=== PATIENT | male | born 1950 | race Caucasian/White ===

== ENCOUNTER 2021-01-19 11:46 | Inpatient (IN) ==
--- NOTE | 2021-01-04 08:48 | History & Physical Report ---
Date of Service January 04, 2021 date of surgery: 01/18/21 Procedure: left shoulder resurfacing hemiarthroplasty vs total shoulder replacement Assessment & Plan (1) Arthritis of left shoulder region: Mr Huerta presents with continued pain in his left shoulder, he had a rotator cuff repair about 14 months ago. he recently had a cortisone injection about 6-8 weeks ago without relief, prior to that he underwent visco injection without relief as well. after further discussion, he would like to proceed with left shoulder resurfacing hemiarthroplasty at [facility]. The risks and benefits have been discussed including, but not limited to, risk of infection, nerve injury, stiffness, loss of motion, failure to improve, etc. Reasonable outcomes and options of treatment were discussed. An explanation of appropriate alternatives to the procedure that may be advantageous were discussed and their risks and benefits, as well as the risks and benefits of not proceeding with treatment. I offered to answer any additional inquiries concerning the treatment involved. All the patient's questions were answered. The patient is agreeable, understanding of the treatment plan and alternatives, and wishes to proceed with the treatment plan. History of Present Illness Chief Complaint: left shoulder pain Primary Care Provider: Madison Knight Mr Huerta is a 70 year old male who complains of left shoulder pain, presents for pre-op evaluation prior to a left shoulder resurfacing vs total shoulder replacement at [facility]. He complains of pain, decreased range of motion and weakness in his left shoulder. he states that the symptoms have been chronic and non-traumatic. Currently the patient states that the symptoms are moderate- severe. The pain is described as aching, sharp and throbbing. Prior NSAIDs include Motrin and Aleve. Jim had prior left shoulder scope by Dr Jaime in October 2019 and subsequent left shoulder visco sample injection 07/26/20 fo llowed by left shoulder cortisone injection on 11/08/20 without any relief. Allergies Allergy/AdvReac Type Severity Reaction Status Date / Time No Known Allergies Allergy Verified 01/03/21 09:08 Home Medications Medication Instructions Recorded Confirmed Type aspirin 81 mg PO QAM 10/17/19 01/03/21 History fluticasone propionate [Flonase 1 spray INTRANASAL DAILY 10/17/19 01/03/21 History Allergy Relief] lorazepam 1 mg PO HS 10/17/19 01/03/21 History montelukast [Singulair] 10 mg PO PM 10/17/19 01/03/21 History pravastatin 40 mg PO HS 10/17/19 01/03/21 History ramipril [Altace] 10 mg PO BID 10/17/19 01/03/21 History terazosin 5 mg PO HS 10/17/19 01/03/21 History cetirizine [Zyrtec] 10 mg PO HS 01/03/21 01/03/21 History diclofenac sodium [Voltaren] 2 g TOPICAL BID 01/03/21 01/03/21 History duloxetine 60 mg PO QPM 01/03/21 01/03/21 History metoprolol succinate 25 mg PO BID 01/03/21 01/03/21 History metoprolol succinate 50 mg PO BID 01/03/21 01/03/21 History Past Med/Surg History Medical History Anxiety Asthma RARELY HAS PROBLEMS (NO INHALER) Bulging lumbar disc CAD (coronary artery disease) 2008 - stent x 1 2005 - stent x 1 Chronic back pain Hearing deficit History of kidney stones History of torsades de pointes during stress test (2008) s/p stent x 1 Hyperlipidemia Hypertension Obesity Osteoarthritis 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 (Medtronic), last checked 07/2019 and generator change (2/2 low battery) 08/2019 Prostate cancer s/p prostatectomy Sleep apnea NO DEVICE USED TMJ arthralgia Surgical History History of arthroscopic knee surgery B/L History of arthroscopy LEFT SHOULDER History of cardiac cath 2008 - stent x 1 2005 - stent x 1 History of cataract surgery RT/LEFT History of cholecystectomy History of colonoscopy History of prostate biopsy History of radical prostatectomy History of repair of rotator cuff B/L History of tonsillectomy History of tooth extraction Status post trigger finger release Family History Aunt Family history of diabetes mellitus Grandmother (Paternal) Family history of diabetes mellitus Other No family history of adverse response to anesthesia Social History Smoking Status: Never smoker Second Hand Exposure: Yes (IN THE PAST); Hx Alcohol Use: No Preferred Language: Kazakh Communication Ability: Effective 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: No Beliefs That Will Affect Care: None Current Living Situation: Spouse Feels Safe at Home: Yes Assistive Devices: Glasses Review of Systems Review of Systems: All systems reviewed & are unremarkable except as noted in HPI & below Constitutional: no fever, no chills and no sweats Respiratory: no cough and no dyspnea Cardiovascular: no chest pain, no dyspnea and no orthopnea Gastrointestinal: no abdominal pain, no nausea and no vomiting Musculoskeletal: as per Subjective / HPI Physical Exam Physical Exam: HT: 6ft 2in WT: 122.5kg Constitutional: WD/WN, vitals as above no acute distress Respiratory: normal respiratory effort, lungs clear to auscultation no respiratory distress, no labored breathing and does not use accessory muscles Cardiovascular: RRR, no murmur, no edema Gastrointestinal (Abdomen): normal bowel sounds, soft, nontender, no hepatosplenomegaly Musculoskeletal: Left Shoulder Physical Exam there is no ecchymosis or erythema noted, positive crepitation with active motion, Tenderness anterior aspect shoulder, subacromial space and the AC joint. Belly press - Positive. Nieves Positive. Cross Body Positive. Neer's - positive. Strength tests - External rotation 4/5, Supraspinatus 4/5 no atrophy Left shoulder ROM Active ROM - Flexion: 120 degrees, Ext Rot 90 Flex: 30 degrees, Abduction: 45 degrees, Factors: pain, Description: Pain with ROM. Passive ROM - Flexion 170 degrees, ER at 90 de degrees, pain with end range passive ROM. Neurovascular- Radial pulse palpable, radial/median/ulnar nerves intact. Elbow- full painless range of motion, no tenderness. Results & Data Results & Data ([facility]) Diagnostic Findings Left shoulder x-ray 11/08/20 showing glenohumeral degenerative changes with joint space narrowing, osteophyte formation and cystic changes within the humeral head. no acute bony pathology.
--- NOTE | 2021-01-04 13:09 | PAT Medication Instructions ---
Medication Instructions Date of Service January 04, 2021 Home Medications aspirin 81 mg PO QAM fluticasone propionate [Flonase Allergy Relief] 1 spray INTRANASAL DAILY lorazepam 1 mg PO HS montelukast [Singulair] 10 mg PO PM pravastatin 40 mg PO HS ramipril [Altace] 10 mg PO BID terazosin 5 mg PO HS cetirizine [Zyrtec] 10 mg PO HS diclofenac sodium [Voltaren] 2 g TOPICAL BID duloxetine 60 mg PO QPM metoprolol succinate 25 mg PO BID metoprolol succinate 50 mg PO BID STOP taking 24 hours before surgery diclofenac sodium [Voltaren] 2 g TOPICAL BID DO NOT take the morning of surgery ramipril [Altace] 10 mg PO BID Take morning of surgery With a small sip of water, OTHERWISE NOTHING TO EAT OR DRINK AFTER MIDNIGHT: metoprolol succinate 25 mg PO BID metoprolol succinate 50 mg PO BID fluticasone propionate [Flonase Allergy Relief] 1 spray INTRANASAL DAILY aspirin 81 mg PO QAM Take evening before surgery lorazepam 1 mg PO HS montelukast [Singulair] 10 mg PO PM pravastatin 40 mg PO HS ramipril [Altace] 10 mg PO BID terazosin 5 mg PO HS cetirizine [Zyrtec] 10 mg PO HS duloxetine 60 mg PO QPM metoprolol succinate 25 mg PO BID metoprolol succinate 50 mg PO BID Other Notes If you have any questions please call us at [phone] or [phone] or [phone] or [phone]
--- NOTE | 2021-01-06 10:49 | Anesthesiology Consultation ---
Date of Service January 06, 2021 Assessment & Plan (1) Encounter for pre-operative examination: Chart Review Chart Review: Pending: Refer to Additional Notes / Consult section (attempting to get copies of stress test, pacemaker check, and preop Covid testing ) and Patient seen in Pre Admission Testing Awaiting stress test 11/2020, pacer check 12/2020 -Discussed pacemaker with Dr. Hays- due to patient having left shoulder surgery- it would be difficult to secure a magnet- will request pacemaker rep be present DOS. Per PAT appt on 01/06/21, patient denies any recent travel. No known Covid positive contacts or Covid related symptoms. No known Covid infection in the past 90 days. Preop Covid testing scheduled 01/12/21= will await results. Educated on importance of self quarantining, social distancing and wearing mask in public both for the patient and household contacts. Seen by cardiology 01/05/2021 = seen for preoperative cardiac clearance. History of CAD status post PCI to RCA in 2003 and 2008. Most recent stress test on 11/15/2020 showed no ischemia. Device check from 12/14/2020 was normal. Patient has a Medtronic dual-chamber permanent pacemaker implanted on 08/2019- " would recommend placing magnet over device if using electrocautery; this will cause pacing at 100 bpm. No reprogramming is required after the magnet is removed." Continue current cardiac medications. Vital signs stable. EKG shows sinus rhythm, right bundle branch block, 60 bpm. " This would be considered as an intermediate risk surgery. He has good functional status, greater than >4 METS and no clinical risk factors. He denies any anginal complaints and appears euvolemic on physical exam today. No indication for any additional testing prior to the surgery. He is optimized from a cardiac standpoint to proceed with a left shoulder arthroplasty." Left shoulder arthroscopy 10/21/2019 = done under [facility] with LMA #5. Atraumatic x1 attempt. No anesthesia issues noted per anesthesia record. Teaching & Discussion Pre-Anesthesia Teaching/Discussion Notes: Instructed NPO after midnight before surgery,except medications with 15 cc of water. Medication instructions provided according to the PAT guidelines. History Surgery Operation Date: 01/18/21 11:55 Proposed Procedures p Left Shoulder Resurfacing versus - Tank Jaime DO s Left Shoulder Hemiarthroplasty versus - Tank Jaime DO s Left Total Shoulder Arthroplasty - Tank Jaime DO Height/Weight Height: 6 ft 2 in Weight: 126.4 kg Allergies Allergy/AdvReac Type Severity Reaction Status Date / Time amoxicillin [From Augmentin] AdvReac Intermediate Diarrhea Verified 01/06/21 10:53 clavulanic acid AdvReac Intermediate Diarrhea Verified 01/06/21 10:53 [From Augmentin] [id number] Reductase AdvReac Intermediate Muscle Verified 01/06/21 10:53 Inhibitor aches and soreness Medications Home Medications Medication Instructions Recorded Confirmed Last Taken aspirin 81 mg PO QAM 10/17/19 01/03/21 10/21/19 07:00 fluticasone propionate [Flonase 1 spray INTRANASAL DAILY 10/17/19 01/03/21 10/20/19 22:00 Allergy Relief] lorazepam 1 mg PO HS 10/17/19 01/03/21 10/20/19 22:00 montelukast [Singulair] 10 mg PO PM 10/17/19 01/03/21 10/20/19 22:00 pravastatin 40 mg PO HS 10/17/19 01/03/21 10/20/19 22:00 ramipril [Altace] 10 mg PO BID 10/17/19 01/03/21 10/20/19 22:00 terazosin 5 mg PO HS 10/17/19 01/03/21 10/20/19 22:00 cetirizine [Zyrtec] 10 mg PO HS 01/03/21 01/03/21 Unknown diclofenac sodium [Voltaren] 2 g TOPICAL BID 01/03/21 01/03/21 Unknown duloxetine 60 mg PO QPM 01/03/21 01/03/21 Unknown metoprolol succinate 25 mg PO BID 01/03/21 01/03/21 Unknown metoprolol succinate 50 mg PO BID 01/03/21 01/03/21 Unknown Past Medical History Medical History Anxiety Asthma RARELY HAS PROBLEMS (NO INHALER) Bulging lumbar disc CAD (coronary artery disease) 2009 - stent x 1 to prox RCA 2006 - stent x 1 Hearing deficit Does not wear hearing aids History of kidney stones No current issues History of torsades de pointes during stress test (2008) s/p stent x 1 Hyperlipidemia Hypertension Lichen planus In mouth - follows with oral surgeon Obesity Osteoarthritis 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 (Medtronic), generator change (2/2 low battery) 08/2019 Prostate cancer s/p prostatectomy- no chemo or XRT Sleep apnea NO DEVICE USED TMJ arthralgia Occ clicking with jaw opening ; difficultly opening mouth Exercise / Class Metabolic Activity II 4-5 Yardwork/Stairs/Walk up hill (ONE FLIGHT OF STAIRS - NO CHEST PAIN OR SOB ) Past Family History Family History Aunt Family history of diabetes mellitus Grandmother (Paternal) Family history of diabetes mellitus Other No family history of adverse response to anesthesia Past Surgical History Surgical History History of arthroscopic knee surgery B/L History of arthroscopy LEFT SHOULDER History of cardiac cath 2008 - stent x 1 2005 - stent x 1 History of cataract surgery RT/LEFT History of cholecystectomy History of colonoscopy History of prostate biopsy History of radical prostatectomy History of repair of rotator cuff B/L History of tonsillectomy History of tooth extraction Status post trigger finger release Past Anesthesia History No Hx of Anesthesia Complications and No Family Hx of Anesthesia Complications History of PONV No Hx of PONV and No Hx of Motion Sickness Social History Smoking Status: Never smoker Hx Alcohol Use: No Hx Substance Use: No substance use type: does not use Review of Systems Patient denies chest pain, shortness of breath, dyspnea on exertion, reflux, cough, wheezing, palpitations. No hx of seizures, stroke. No hx of blood clots or blood transfusions Physical Exam Vital Signs VITALS BP 119/73 P 59 TEMP 98.1 SP02 96% RESP 16 Constitutional no acute distress ENMT Mouth: + small oral opening; no TMJ clicking Thyromental Distance: > or= 3.5 Finger Breadths (4.0) Mallampati Class: II Permanent bridge top front Crowns molar MIssing molar Neck + limited neck extension (moderate ) and + facial hair (encouraged patient to trim de los santos ) Respiratory normal respiratory effort; no respiratory distress Auscultation: lungs clear to auscultation bilaterally; no wheezes Cardiovascular Rate/Rhythm: regular rate and regular rhythm Heart Sounds: no murmur Vessels: no carotid bruit Musculoskeletal Spine: no pain with cervical ROM Extremities: extremities normal to inspection Psychiatric Orientation: alert Testing Laboratory Results PT 10.2 Seconds (9.0-12.0) 01/06/21 11:11 INR 1.0 (0.9-1.1) 01/06/21 11:11 APTT 26.3 Seconds (21.0-31.0) 01/06/21 11:11 Hemoglobin A1c 5.6 % (4.5-5.6) 01/06/21 11:11 Urine Color Yellow 01/06/21 11:11 Urine Appearance Clear (Clear) 01/06/21 11:11 Urine pH 6.0 (4.5-7.5) 01/06/21 11:11 Ur Specific [place] 1.017 (1.000-1.030) 01/06/21 11:11 Urine Protein Negative (Negative) 01/06/21 11:11 Urine Glucose (UA) Negative (Negative) 01/06/21 11:11 Urine Ketones Negative (Negative) 01/06/21 11:11 Urine Nitrite Negative (Negative) 01/06/21 11:11 Ur Leukocyte Esterase Negative (Negative) 01/06/21 11:11 Blood Type A Positive 01/06/21 11:11 Antibody Screen NEGATIVE 01/06/21 11:11 12/14/20= WBC: 6.25 H/H: 14.2/41.9 PLATELETS: 218 SODIUM: 143 POTASSIUM: 4.1 CHLORIDE: 109 CO2: 26.5 BUN: 15.9 CREATININE: 1.04 GLUCOSE: 118 Electrocardiogram Date: 01/05/21 Sinus rhythm at 60 bpm. Right bundle branch block. Chest X-Ray Date: 01/04/21 Findings: + NAD Cardiomegaly and cardiac pacemaker with no radiographic evidence of congestive failure. There is bibasilar scarring/atelectasis. Chronic interstitial thickening is similar to previous. No airspace consolidation or pleural effusion is identified. There is no pneumothorax. Echocardiogram Date: 07/02/18 EF 60%. No RWMA. RVSP 35mmhg. No significant valvular disease.
--- NOTE | 2021-01-06 11:39 | XRay Report ---
TWO VIEW CHEST CLINICAL HISTORY: Preoperative examination. FINDINGS: PA and lateral chest radiographs are compared to study dated 10/20/2019. A 2-lead cardiac p acemaker is unchanged in position and partially obscures the left upper chest. The heart is enlarged noting atherosclerotic calcification of the thoracic aorta. The pulmonary vasculature is noncongested . There is bibasilar scarring/atelectasis. Chronic interstitial thickening is similar to previous. No airspace consolidation or pleural effusion is identified. There is no pneumothorax. The bony thorax appears intact. Cholecystectomy clips are noted in the upper abdomen. IMPRESSION: 1. Cardiomegaly and cardiac pacemaker with no radiographic evidence of congestive failure. 2. No airspace consolidation or pleural effusion is identified. ACT 112: Negative or not required by law. Electronically signed by: Jayden Weinberg M.D. 01/06/2021 11:37 AM
[2021-01-06 12:53] LABS: Appearance Urine Clear (Clear); Bilirubin Urine Negative (Negative); Blood Urine Negative (Negative); Color Urine Yellow; Glucose Urine UA Negative (Negative); Ketones Urine Negative (Negative); Leukocyte Esterase Urine Negative (Negative); Nitrite Urine Negative (Negative); Protein Urine Negative (Negative); Specific Gravity Urine 1.017 (1.000-1.030); Urobilinogen Urine Negative (Negative)
[2021-01-06 13:08] LABS: Partial Thromboplastin Time 26.3 Seconds (21.0-31.0); Prothrombin Time 10.2 Seconds (9.0-12.0)
[2021-01-06 13:43] LABS: Estimated Average Glucose 114 mg/dl; Hemoglobin A1C 5.6 % (4.5-5.6)
[~2021-01-19 11:46] MED LIST: ACETAMINOPHEN 500 MG TAB PO SCH; BUPIVACAINE 0.5 % 5 MG/1 ML PF 10ML VIAL ONE; CeleBREX 200 MG CAP PO SCH; FAMOTIDINE 20 MG TAB PO SCH; GABAPENTIN 300 MG CAP PO SCH; LR 15ML/HR IV SCH; METOCLOPRAMIDE HCL 10 MG TABLET PO SCH; oxyCODONE HCL 10 MG TABCR (OxyCONTIN) PO SCH
[2021-01-19] MEDS ORDERED: fentaNYL citrate 100 MCG/2 ML VIAL ONE (12:31)
[2021-01-19] MEDS ORDERED: LIDOCAINE HCL 2% 2 ML VIAL/AMP(20MG/ML) INFIL ONE (12:31)
[2021-01-19] MEDS ORDERED: MIDAZOLAM HCL 1 MG/ML 2ML VIAL ONE (12:31)
[2021-01-19] MEDS ORDERED: PROPOFOL IV EMULSION 10 MG/ML 20 ML VIAL IV ONE (12:31)
--- NOTE | 2021-01-19 13:16 | History & Physical Bridge Note ---
Date of Service January 19, 2021 History & Physical Bridge Note I have examined the patient, reviewed the History & Physical and in the interval since the performance of the History & Physical I have noted the following changes of clinical significance: no changes noted
[2021-01-19] MEDS ORDERED: BACITRACIN INJ 50,000 UNIT VIAL ONE (13:51)
[2021-01-19] MEDS ORDERED: ePHEDrine sulfate 50 MG/ML AMP ONE (15:58)
[2021-01-19] MEDS ORDERED: PROMETHAZINE HCL INJ 25 MG/ML 1 ML VIAL ONE (15:58)
[2021-01-19] MEDS ORDERED: VASOPRESSIN 20 UNIT/ML VIAL ONE (15:58)
--- NOTE | 2021-01-19 16:08 | Operative Report ---
Post Operative Report Pre & Post Diagnosis Operation Date: 01/19/21 14:15 Pre-Op Diagnosis: Osteoarthritis Shoulder Left Post-Op Diagnosis: Osteoarthritis Shoulder Left I identified the patient and participated in the time-out.: Yes Procedure Operation Date: 01/19/21 14:15 Actual Procedures p Left Shoulder Resurfacing(Left) utilizing a 46 x 17 tournier resurfacing hemiarthroplasty- Tank Jaime DO Surgeon Tank Jaime DO Food Processor Aly BAEZ Estimated Blood Loss 10 Findings Consistent with Post-Op Diagnosis Patient presents with glenohumeral DJD with osteophytes along the humeral head no rotator cuff tear nonresponsive to previous Visco supplements as well as a corticosteroid injections presents for left shoulder hemiarthroplasty the glenoid was noted to be in excellent condition otherwise no labral tear was noted Specimens Bone and cartilage Drains Medium bore Hemovac Anesthesia Type General Regional Complications none Disposition Accompanied Patient To Recovery: No Disposition: Recovery Room Indications Patient presents with ongoing complaints of glenohumeral DJD left shoulder nonresponse to conservative management including corticosteroid injections viscosupplementation the patient is also had previous arthroscopy the above intraoperative findings were noted Description of Procedure After initiation of general anesthesia left shoulder region was socially prepped draped usual fashion for surgery this type a incision over the region of the deltopectoral interval was made with special attention paid to protect the pacemaker which was medial to the incision was also gently protected out of harm's way subsequently the deltopectoral interval was developed the cephalic vein was retracted lateralward with the deltoid the anterior aspect of the capsule was then palpated via finger dissection down to the region of the anterior capsule joint of the fascia was gently retracted off the anterior subscapularis tendon scalp subscapularis tendon was then reflected off the anterior humeral head with special attention paid to protect the biceps tendon the biceps tendon was retracted out of harm's way the shoulder was externally rotated the humeral head was then delivered from the wound the special test was paid back neurovascular structures Nerve at all times socially after thorough irrigation debridement lavage the glenoid was inspected there was noted to be excellent condition plus a resurfacing of the humeral head was performed removal of osteophytes around the margin was performed the humeral head was sized to a size 46 x 17 gave anatomic catholic of anatomy subsequently this was reversed reamed and a trial component was placed to control range of motion excellent stability was noted the wound was irrigated with copious muscle sterile saline solution subsequently three #5 FiberWire's were passed through the footprint of the subscapularis tendon for reattachment and they were brought out through the humeral head the final component was brought onto the field and was gently press-fit in the position tamped into position the sutures for the #5 FiberWire were then passed through the subscapularis tendon at the repair back in anatomic fashion the rotator was repaired the wound was irrigated with copious amounts of sterile sa line solution hemostasis was obtained to maintain the medium bore Hemovacs placed in the deep wound the deltopectoral was closed with #0 Vicryl subcu was closed with 2-0 Vicryl skin was closed with skin clips sterile compressive dressings placed will shoulder immobilizer Aly BAEZ was necessary prepping draping retraction wound closure of deep fascia subcu and skin was necessary for the case I attest to the content of the Intraoperative Record and any orders documented therein. Any exceptions are noted below.
--- NOTE | 2021-01-19 17:05 | Anesthesiology Progress Note ---
Date of Service January 19, 2021 Anesthesia Post Procedure Vital Signs Vital Signs: Temp Pulse Pulse Resp BP Pulse Ox 01/19/21 17:00 36.3 C L 60 16 116/77 96 01/19/21 16:50 60 18 126/63 97 01/19/21 16:40 70 14 116/78 97 01/19/21 16:30 70 12 126/77 96 01/19/21 16:20 36.4 C L 70 16 120/91 94 01/19/21 12:12 36.5 C 60 20 128/76 97 Transfer of Care Handoff Completed per policy Notes Mental Status: alert / awake / arousable and participated in evaluation Patient Amnestic to Procedure: Yes Nausea / Vomiting: adequately controlled Pain: adequately controlled Airway Patency, RR, SpO2: stable & adequate BP & HR: stable & adequate Hydration State: stable & adequate Anesthetic Complications: no major complications apparent and Pt Satisfied with anesthetic care Notes: Block is working well. Pacemaker returned to preoperative settings by medtronic.
--- NOTE | 2021-01-19 17:24 | XRay Report ---
LEFT SHOULDER 2 VIEWS CLINICAL HISTORY: Postoperative examination. FINDINGS: 2 portable views of the left shoulder are obtained. A left shoulder arthroplasty is in near -anatomic alignment. Postoperative change is seen at the acromioclavicular joint. No acute fracture i s identified. Subcutaneous gas, soft tissue swelling, and skin clips overlying the left shoulder are expected postoperative changes. A cardiac pacemaker is partially imaged. The left lung parenchyma is clear as imaged noting basilar atelectasis. IMPRESSION: Expected postoperative findings status post left shoulder arthroplasty. No acute fracture is seen. Electronically signed by: Jayden Weinberg M.D. 01/19/2021 5:22 PM
[2021-01-19] MEDS ORDERED: MAGNESIUM HYDROXIDE SUSP 30 ML UDC PO PRN (17:36)
[2021-01-19] MEDS ORDERED: HYDROmorphone INJ 0.5 MG/0.5 ML SYR IV PRN (17:36)
[2021-01-19] MEDS ORDERED: oxyCODONE HCL IR 5 MG TAB (IMMEDIATE RELEASE) PO PRN (17:36)
[2021-01-19] MEDS: SODIUM CHLORIDE 0.9% 1000ML 1,000 ML IV SCH (17:36)
[2021-01-19] MEDS ORDERED: NALOXONE HCL 0.4 MG/1 ML VIAL/CARP IV PRN (17:36)
[2021-01-19] MEDS ORDERED: bisacodyL 10 MG SUPP PR PRN (17:36)
[2021-01-19] MEDS ORDERED: ONDANSETRON INJ 2 MG/ML 2 ML VIAL IV PRN (17:36)
[2021-01-19] MEDS ORDERED: SENNA 8.6 MG TAB PO SCH (21:00)
[2021-01-19] MEDS ORDERED: TERAZOSIN HCL 5 MG CAP PO SCH (21:00)
[2021-01-19] MEDS ORDERED: DULoxetine HCL 60 MG CAP PO SCH (21:00)
[2021-01-19] MEDS ORDERED: CETIRIZINE HCL 10 MG TABLET PO SCH (21:00)
[2021-01-19] MEDS ORDERED: MONTELUKAST SODIUM 10 MG TABLET PO SCH (21:00)
[2021-01-19] MEDS ORDERED: PRAVASTATIN SOD 40 MG TAB PO SCH (21:00)
[2021-01-19] MEDS ORDERED: LORazepam 1 MG TAB PO SCH (21:00)
[2021-01-19] MEDS: DOCUSATE SODIUM 100 MG CAP PO SCH (21:52)
[2021-01-19] MEDS: ACETAMINOPHEN 500 MG TAB PO SCH (21:52)
[2021-01-19] MEDS: ASPIRIN 81 MG ECTAB PO SCH (21:52)
[2021-01-19] MEDS: METOPROLOL SUCC 50MG EXT REL TAB PO SCH (21:53)
[2021-01-19] MEDS: METOPROLOL SUCC 25MG EXT REL TAB PO SCH (21:53)
[2021-01-19] MEDS: ceFAZolin 2000MG 2,000 MG/15 ML SYR IV SCH (21:59)
[2021-01-19] MEDS: ENALAPRIL MALEATE 10 MG TAB PO SCH (22:30)
[2021-01-20] MEDS: ceFAZolin 2000MG 2,000 MG/15 ML SYR IV SCH (05:54)
[2021-01-20] MEDS: ACETAMINOPHEN 500 MG TAB PO SCH ×2 (05:54→13:51)
[2021-01-20] MEDS: SODIUM CHLORIDE 0.9% 1000ML 1,000 ML IV SCH (06:09)
[2021-01-20 06:29] LABS: Basophils # (auto) 0.03 K/uL (0-0.2); Basophils % (auto) 0.4 %; Eosinophils # (auto) 0.16 K/uL (0-0.5); Eosinophils % (auto) 2.2 %; Hematocrit (blood only) 36.4 % (42-52); Hemoglobin 12.8 g/dL (14.0-18.0); Immature Granulocytes # (auto) 0.01 K/uL (0.00-0.02); Immature Granulocytes % (auto) 0.1 %; Lymphocytes # (auto) 1.38 K/uL (1.2-3.4); Lymphocytes % (auto) 18.8 %; Mean Corpuscular Hemoglobin 30.9 pg (25-34); Mean Corpuscular Hgb Conc 35.2 g/dL (32-36); Mean Corpuscular Volume 87.9 fL (80-100); Mean Platelet Volume 9.4 fL (7.4-10.4); Monocytes # (auto) 0.67 K/uL (0.11-0.59); Monocytes % (auto) 9.1 %; Neutrophils # (auto) 5.08 K/uL (1.4-6.5); Neutrophils % (auto) 69.4 %; Platelet Count 180 K/uL (130-400); RDW Coefficient of Variation 14.2 % (11.5-14.5); Red Blood Count 4.14 M/uL (4.7-6.1); White Blood Count 7.33 K/uL (4.8-10.8)
[2021-01-20 06:57] LABS: BUN Creatinine Ratio 14.3 (10-20); Calcium 8.3 mg/dl (8.5-10.1); Creatinine Clr Calc Pharmacy 66.9 ml/min; Est GFR (African American) 55.6; Est GFR (Non-African American) 47.9; Potassium 3.6 mmol/L (3.5-5.1)
[2021-01-20] MEDS: METOPROLOL SUCC 50MG EXT REL TAB PO SCH (08:30)
[2021-01-20] MEDS: METOPROLOL SUCC 25MG EXT REL TAB PO SCH (08:30)
[2021-01-20] MEDS: ENALAPRIL MALEATE 10 MG TAB PO SCH (08:30)
[2021-01-20] MEDS: DOCUSATE SODIUM 100 MG CAP PO SCH (08:31)
[2021-01-20] MEDS: ASPIRIN 81 MG ECTAB PO SCH (08:31)
[2021-01-20] MEDS ORDERED: ASPIRIN 81 MG ECTAB PO SCH (09:00)
[2021-01-20] MEDS ORDERED: FLUTICASONE PROPIONATE NA SPR 16 GM BTL SCH (09:00)
[2021-01-20] MEDS ORDERED: MULTIVITAMIN TAB PO SCH (09:00)
[2021-01-20] MEDS ORDERED: SODIUM CHLORIDE 0.9% 1000ML 500 ML IV ONE (09:34)
[2021-01-20] MEDS ORDERED: SODIUM CHLORIDE 0.9% 1000ML 1,000 ML IV SCH (10:00)
--- NOTE | 2021-01-20 11:06 | Orthopedic Progress Note ---
Date of Service January 20, 2021 Assessment & Plan (1) Arthritis of left shoulder region: Postop day 1 status post left hemiarthroplasty of the shoulder PT/OT protocols. Nonweightbearing on the left upper extremity. DVT prophylaxis-aspirin, SCDs. Pain management as written. Patient has had a bump in his creatinine to 1.4. Preop was 1.0. We will give a bolus of fluids and continue his IV fluids for now and recheck creatinine later today. Admission and Anticipated Discharge Date Admission Date: January 19, 2021 Subjective Postop day 1 Patient currently sitting up in bed. Awake and alert. No complaints. Pain is controlled. Physical Exam Physical Exam: Dressings are clean, dry, and intact. Residual block is still in place. Patient is moving his fingers and wrist however has some slight weakness in strength compared to his right hand. Mild decrease sensation compared to the right. Sling is in place. Cap refills less than 2 seconds. Results & Data ([facility]) Vital Signs (Past 12 Hours) Vital Signs Temp Pulse Pulse Resp BP Pulse Ox 01/20/21 08:15 36.6 C 65 18 116/69 01/20/21 02:00 36.6 C 66 18 122/71 97 Laboratory Results Laboratory Results WBC 7.33 K/uL (4.8-10.8) 01/20/21 06:05 RBC 4.14 M/uL (4.7-6.1) L 01/20/21 06:05 Hgb 12.8 g/dL (14.0-18.0) L 01/20/21 06:05 Hct 36.4 % (42-52) L 01/20/21 06:05 MCV 87.9 fL (80-100) 01/20/21 06:05 MCH 30.9 pg (25-34) 01/20/21 06:05 MCHC 35.2 g/dL (32-36) 01/20/21 06:05 RDW Std Deviation 46.0 fL (36.4-46.3) 01/20/21 06:05 RDW Coeff of [place] 14.2 % (11.5-14.5) 01/20/21 06:05 Plt Count 180 K/uL (130-400) 01/20/21 06:05 MPV 9.4 fL (7.4-10.4) 01/20/21 06:05 Immature Gran % (Auto) 0.1 % 01/20/21 06:05 Neut % (Auto) 69.4 % 01/20/21 06:05 Lymph % (Auto) 18.8 % 01/20/21 06:05 [place] % (Auto) 9.1 % 01/20/21 06:05 Eos % (Auto) 2.2 % 01/20/21 06:05 Baso % (Auto) 0.4 % 01/20/21 06:05 Neut # (Auto) 5.08 K/uL (1.4-6.5) 01/20/21 06:05 Lymph # (Auto) 1.38 K/uL (1.2-3.4) 01/20/21 06:05 [place] # (Auto) 0.67 K/uL (0.11-0.59) H 01/20/21 06:05 Eos # (Auto) 0.16 K/uL (0-0.5) 01/20/21 06:05 Baso # (Auto) 0.03 K/uL (0-0.2) 01/20/21 06:05 Immature Gran # (Auto) 0.01 K/uL (0.00-0.02) 01/20/21 06:05 PT 10.2 Seconds (9.0-12.0) 01/06/21 11:11 INR 1.0 (0.9-1.1) 01/06/21 11:11 APTT 26.3 Seconds (21.0-31.0) 01/06/21 11:11 PTT Ratio 1.0 01/06/21 11:11 Sodium 137 mmol/L (136-145) 01/20/21 06:05 Potassium 3.6 mmol/L (3.5-5.1) 01/20/21 06:05 Chloride 106 mmol/L (98-107) 01/20/21 06:05 Carbon Dioxide 25 mmol/L (21-32) 01/20/21 06:05 Anion Gap 6.0 (3-11) 01/20/21 06:05 BUN 21 mg/dl (7-18) H 01/20/21 06:05 Creatinine 1.48 mg/dl (0.6-1.4) H 01/20/21 06:05 Est Cr Clr Drug Dosing 66.9 ml/min 01/20/21 06:05 Est GFR ( Amer) 55.6 01/20/21 06:05 Est GFR (Non-Af Amer) 47.9 01/20/21 06:05 BUN/Creatinine Ratio 14.3 (10-20) 01/20/21 06:05 Glucose 110 mg/dl (70-99) H 01/20/21 06:05 Estimat Average Glucose 114 mg/dl 01/06/21 11:11 Hemoglobin A1c 5.6 % (4.5-5.6) 01/06/21 11:11 Calcium 8.3 mg/dl (8.5-10.1) L 01/20/21 06:05 Urine Color Yellow 01/06/21 11:11 Urine Appearance Clear (Clear) 01/06/21 11:11 Urine pH 6.0 (4.5-7.5) 01/06/21 11:11 Ur Specific [place] 1.017 (1.000-1.030) 01/06/21 11:11 Urine Protein Negative (Negative) 01/06/21 11:11 Urine Glucose (UA) Negative (Negative) 01/06/21 11:11 Urine Ketones Negative (Negative) 01/06/21 11:11 Urine Blood Negative (Negative) 01/06/21 11:11 Urine Nitrite Negative (Negative) 01/06/21 11:11 Urine Bilirubin Negative (Negative) 01/06/21 11:11 Urine Urobilinogen Negative (Negative) 01/06/21 11:11 Ur Leukocyte Esterase Negative (Negative) 01/06/21 11:11 Hepatitis C Ab Screen Neg (Neg) 01/20/21 06:05 Blood Type A Positive 01/06/21 11:11 Antibody Screen NEGATIVE 01/06/21 11:11
[2021-01-20 13:22] LABS: BUN Creatinine Ratio 16.1 (10-20); Calcium 8.4 mg/dl (8.5-10.1); Est GFR (African American) 66.8; Est GFR (Non-African American) 57.7; Potassium 3.9 mmol/L (3.5-5.1)
--- NOTE | 2021-01-20 13:25 | Hospitalist Consultation ---
Date of Consultation January 20, 2021 Assessment & Plan (1) Arthritis of left shoulder region: POD #1 left shoulder partial arthroplasty Pain adequately controlled Currently immobilized in sling Further management per orthopedics (2) Sleep apnea: Does not use a device at home Would recommend polysomnography Outpatient follow-up (3) CAD (coronary artery disease): Continue aspirin, pravastatin, ramipril, Toprol-XL Hemodynamically stable Further outpatient management (4) Hypertension: Hemodynamically stable Continue usual home medications No adjustments to medications needed on discharge (5) Asthma: Continue montelukast No bronchospasm on exam Outpatient follow-up (6) Pacemaker: Regular rate and rhythm Outpatient follow-up (7) Anxiety: No emotional lability Continue home dose of lorazepam Thank you for including us in the care of this patient. He is very stable at this time. The medicine service will sign off. Please feel free to reconsult as needed. Supervising Physician Co-Signing Physician Notes Patient seen and examined with Jayden BAEZ. I agree with their his exam findings, review of systems, assessment and plan. I reviewed the chart. patient doing well, management per orthopedics - CAD: no chest pain, continue aspirin, metoprolol, pravastatin - HTN: BP well controlled on home regimen History of Present Illness Attending Physician: Tank Jaime DO History of Present Illness Attending: Dr. Fu Patient is a 70 yo male POD#1 partial left shoulder arthroplasty with Dr. Jaime. Past medical history includes hypertension, anxiety, seasonal allergies, BPH. Patient has had ongoing issues with arthritis of the left shoulder. He failed outpatient therapy with conservative treatment. He did have a history of rotator cuff repair 14 months ago. He has also been undergoing cortisone injections on a regular basis. Patient underwent partial left shoulder art hroplasty yesterday. He currently is in a sling and denies any pain of the shoulder at this time. He has no fever chills. He has no shortness of breath or chest pain. He has no acute complaints. He does state that he is having regular bowel movements and is having no trouble with urination. He has no acute complaints. Allergies Allergy/AdvReac Type Severity Reaction Status Date / Time amoxicillin [From Augmentin] AdvReac Intermediate Diarrhea Verified 01/19/21 12:05 clavulanic acid AdvReac Intermediate Diarrhea Verified 01/19/21 12:05 [From Augmentin] Ldhrebj-Rmd-[id number] Reductase AdvReac Intermediate Muscle Verified 01/19/21 12:05 Inhibitor aches and soreness Home Medications Medication Instructions Recorded Confirmed Type fluticasone propionate [Flonase 1 spray INTRANASAL DAILY 10/17/19 01/19/21 History Allergy Relief] lorazepam 1 mg PO HS 10/17/19 01/19/21 History montelukast [Singulair] 10 mg PO PM 10/17/19 01/19/21 History pravastatin 40 mg PO HS 10/17/19 01/19/21 History ramipril [Altace] 10 mg PO BID 10/17/19 01/19/21 History terazosin 5 mg PO HS 10/17/19 01/19/21 History cetirizine [Zyrtec] 10 mg PO HS 01/03/21 01/19/21 History duloxetine 60 mg PO QPM 01/03/21 01/19/21 History metoprolol succinate 25 mg PO BID 01/03/21 01/19/21 History metoprolol succinate 50 mg PO BID 01/03/21 01/19/21 History acetaminophen 1,000 mg PO Q8 14 Days #84 tab 01/20/21 Rx aspirin 81 mg PO BID 30 Days #60 tab 01/20/21 Rx oxycodone 5 mg PO Q4H PRN #30 tab MDD 6 01/20/21 Rx Patient History Medical History (Updated 01/20/21 @ 14:21 by Jayden Oh PA-C) Anxiety Asthma RARELY HAS PROBLEMS (NO INHALER) Bulging lumbar disc CAD (coronary artery disease) 2008 - stent x 1 to prox RCA 2005 - stent x 1 Hearing deficit Does not wear hearing aids History of kidney stones No current issues History of torsades de pointes during stress test (2008) s/p stent x 1 Hyperlipidemia Hypertension Lichen planus In mouth - follows with oral surgeon Obesity Osteoarthritis 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 ([employer]), generator change (2/2 low battery) 08/2019 Prostate cancer s/p prostatectomy- no chemo or XRT Sleep apnea NO DEVICE USED TMJ arthralgia Occ clicking with jaw opening ; difficultly opening mouth Surgical History History of arthroscopic knee surgery B/L History of arthroscopy LEFT SHOULDER History of cardiac cath 2009 - stent x 1 2006 - stent x 1 History of cataract surgery RT/LEFT History of cholecystectomy History of colonoscopy History of prostate biopsy History of radical prostatectomy History of repair of rotator cuff B/L History of tonsillectomy History of tooth extraction Status post trigger finger release Family History Aunt Family history of diabetes mellitus Grandmother (Paternal) Family history of diabetes mellitus Other No family history of adverse response to anesthesia Social History Smoking Status: Never smoker Second Hand Exposure: Yes (IN THE PAST); Hx Alcohol Use: No Hx Substance Use: No Preferred Language: Danish Communication Ability: Effective Consumer Affairs Manager Required: No Beliefs That Will Affect Care: None marital status: Current Living Situation: Spouse Feels Safe at Home: Yes Safety Concerns: Feels Safe At This Time Assistive Devices: Glasses Review of Systems Review of Systems: All systems reviewed & are unremarkable except as noted in HPI & below Physical Exam Physical Exam: GENERAL : No acute distress EYES: No icterus, gaze conjugate NOSE: No evidence of epistaxis MOUTH: No lesions or candidiasis NECK: Supple LUNGS: CTA B/L, no wheezes, rales or rhonchi HEART: Regular, rate controlled ABDOMEN: Soft, NT, ND, BS Present EXTREMITIES: Left arm is immobilized in a sling. No LE edema, pedal pulses intact and equal bilaterally. Radial pulse in left arm is appropriate. NEURO: A&OX3 Results & Data Results & Data ([facility]) Vital Signs (Past 12 Hours) Vital Signs Temp Pulse Pulse Resp BP Pulse Ox 01/20/21 12:13 36.8 C 81 18 136/53 L 01/20/21 08:15 36.6 C 65 18 116/69 01/20/21 02:00 36.6 C 66 18 122/71 97 Laboratory Results 01/20/21 06:05 01/20/21 12:46 Diagnostic Findings LEFT SHOULDER 2 VIEWS CLINICAL HISTORY: Postoperative examination. FINDINGS: 2 portable views of the left shoulder are obtained. A left shoulder arthroplasty is in near-anatomic alignment. Postoperative change is seen at the acromioclavicular joint. No acute fracture is identified. Subcutaneous gas, soft tissue swelling, and skin clips overlying the left shoulder are expected postoperative changes. A cardiac pacemaker is partially imaged. The left lung parenchyma is clear as imaged noting basilar atelectasis. IMPRESSION: Expected postoperative findings status post left shoulder arthroplasty. No acute fracture is seen. Electronically signed by: Jayden Weinberg M.D. 01/19/2021 5:22 PM PG Care Time/CCT Total # of Minutes Spent Total Time Spent with Patient: Total time spent is greater than 50% in coordination of care (as documented) at patient's floor/unit and/or counseling patient: Coding Level of Care Code 78606 Inpt Consult Level 4 Diagnoses Arthritis of left shoulder region M19.012 Sleep apnea G47.30 Sleep apnea type: unspecified type CAD (coronary artery disease) I25.10 Associated angina: without angina Coronary Disease-Associated Artery/Lesion type: [place] artery [place] vs. transplanted heart: [place] heart Hypertension I10 Hypertension type: unspecified Asthma J45.20 Asthma complication type: uncomplicated Asthma persistence: intermittent Asthma severity: mild Pacemaker Z95.0 Anxiety F41.9 Time Spent (min) 50 (1) Sleep apnea Sleep apnea type: unspecified type Qualified Code(s): G47.30 - Sleep apnea, unspecified (2) CAD (coronary artery disease) Associated angina: without angina Coronary Disease-Associated Artery/Lesion type: [place] artery [place] vs. transplanted heart: [place] heart Qualified Code(s): I25.10 - Atherosclerotic heart disease of [place] coronary artery without angina pectoris (3) Hypertension Hypertension type: unspecified Qualified Code(s): I10 - Essential (primary) hypertension (4) Asthma Asthma complication type: uncomplicated Asthma persistence: intermittent Asthma severity: mild Qualified Code(s): J45.20 - Mild intermittent asthma, uncomplicated
--- NOTE | 2021-01-21 15:24 | Discharge Summary ---
Date of Service January 21, 2021 Admission HPI Per Admitting Provider Mr Huerta is a 70 year old male who complains of left shoulder pain, presents for pre-op evaluation prior to a left shoulder resurfacing vs total shoulder replacement at [facility]. He complains of pain, decreased range of motion and weakness in his left shoulder. he states that the symptoms have been chronic and non-traumatic. Currently the patient states that the symptoms are moderate- severe. The pain is described as aching, sharp and throbbing. Prior NSAIDs include Motrin and Aleve. Jim had prior left shoulder scope by Dr Jaime in October 2019 and subsequent left shoulder visco sample injection 07/26/20 followed by left shoulder cortisone injection on 11/08/20 without any relief. Admission Exam Per Admitting Provider Physical Exam: HT: 6ft 2in WT: 122.5kg Constitutional: WD/WN, vitals as above no acute distress Respiratory: normal respiratory effort, lungs clear to auscultation no respiratory distress, no labored breathing and does not use accessory muscles Cardiovascular: RRR, no murmur, no edema Gastrointestinal (Abdomen): normal bowel sounds, soft, nontender, no hepatosplenomegaly Musculoskeletal: Left Shoulder Physical Exam there is no ecchymosis or erythema noted, positive crepitation with active motion, Tenderness anterior aspect shoulder, subacromial space and the AC joint. Belly press - Positive. Nieves Positive. Cross Body Positive. Neer's - positive. Strength tests - External rotation 4/5, Supraspinatus 4/5 no atrophy Left shoulder ROM Active ROM - Flexion: 120 degrees, Ext Rot 90 Flex: 30 degrees, Abduction: 45 degrees, Factors: pain, Description: Pain with ROM. Passive ROM - Flexion 170 degrees, ER at 90 de degrees, pain with end range passive ROM. Neurovascular- Radial pulse palpable, radial/median/ulnar nerves intact. Elbow- full painless range of motion, no tenderness. Principal Diagnosis Left shoulder osteoarthritis Discharge Data Allergies Allergy/AdvReac Type Severity Reaction Status Date / Time amoxicillin [From Augmentin] AdvReac Intermediate Diarrhea Verified 01/19/21 12:05 clavulanic acid AdvReac Intermediate Diarrhea Verified 01/19/21 12:05 [From Augmentin] [id number]-[id number] Reductase AdvReac Intermediate Muscle Verified 01/19/21 12:05 Inhibitor aches and soreness Consultations 01/13/21 14:42 Consult Hospitalist Routine 01/19/21 17:36 Consult Case Management - Discharge Planning Routine Procedures Performed Operation Date: 01/19/21 14:15 Actual Procedures p Left Shoulder Resurfacing(Left) - Tank Jaime DO Ordered Studies 01/18/21 05:00 US - OR guided needle placemen Routine 01/19/21 14:10 US - OR guided needle placemen Routine Hospital Course (1) Arthritis of left shoulder region: Addendum (Blank) Addendum January 20, 2021 14:00 Repeat labs showing Creatinine down to 1.2. Plan for dc to home today. Repeat BMP in 1 week with results to PCP. Addendum Signed By:<Electronically signed by Aly Taylor PA-C>01/20/21ddendum Cosigned By: Created: 01/20/21 Date of Service January 20, 2021 Assessment & Plan (1) Arthritis of left shoulder region: Postop day 1 status post left hemiarthroplasty of the shoulder PT/OT protocols. Nonweightbearing on the left upper extremity. DVT prophylaxis-aspirin, SCDs. Pain management as written. Patient has had a bump in his creatinine to 1.4. Preop was 1.0. We will give a bolus of fluids and continue his IV fluids for now and recheck creatinine later today. Admission and Anticipated Discharge Date Admission Date: January 19, 2021 Subjective Postop day 1 Patient currently sitting up in bed. Awake and alert. No complaints. Pain is controlled. Physical Exam Physical Exam: Dressings are clean, dry, and intact. Residual block is still in place. Patient is moving his fingers and wrist however has some slight weakness in strength compared to his right hand. Mild decrease sensation com pared to the right. Sling is in place. Cap refills less than 2 seconds. Results & Data ([facility]) Vital Signs (Past 12 Hours) Vital Signs Temp Pulse Pulse Resp BP Pulse Ox 01/20/21 08:15 36.6 C 65 18 116/69 01/20/21 02:00 36.6 C 66 18 122/71 97 Laboratory Results Laboratory Results WBC 7.33 K/uL (4.8-10.8) 01/20/21 06:05 RBC 4.14 M/uL (4.7-6.1) L 01/20/21 06:05 Hgb 12.8 g/dL (14.0-18.0) L 01/20/21 06:05 Hct 36.4 % (42-52) L 01/20/21 06:05 Total Time Total Time Spent Total Time Spent (In Minutes): 5 Discharge Plan Discharge Items Patient Disposition: Home - Self-Care Reason For Visit: Osteoarthritis Shoulder Left Discharge Diagnosis: Osteoarthritis left shoulder Activity: Per Instructions section Weightbearing: Left non-weightbearing Weightbearing Comment: Sling at all times except for changing clothes or bathing Non-emergency contact: Surgeon Call non-emergency contact if: your pain is not controlled, your temperature is above 101.5, your wound has increased redness and your wound has increased drainage Follow-up/Referrals: Madison Knight M.D. [Primary Care Provider] - Diet: Regular Ambulatory Orders: Basic Metabolic Panel (Routine) Timeframe: 1 Week Location: Determined by Patient Ordered By: Aly Auguste Attending Provider Instructions: ACTIVITY RECOMMENDATIONS: SELF CARE INSTRUCTIONS AFTER TOTAL SHOULDER HEMIARTHROPLASTY A. You may do daily exercises as taught in physical therapy while in hospital. No lifting with the operative arm. . B. You are to wear your sling/immobilizer at all times EXCEPT when performing your daily exercises, participating in physical therapy and for hygiene purposes. C. You may perform dry, daily dressing changes. Please keep your incision covered. You may shower 48 hours after surgery. Do not apply soap or any ointment/lotions directly over incision. Do not soak incision in bath tub/swimming pool. D. You may use ice as needed to operative shoulder. SPECIAL CARE INSTRUCTIONS: MEDICATION INSTRUCTIONS: *It is recommended you take Aspirin 325mg daily for four weeks post-op. VERY IMPORTANT TO READ AND REVIEW A. There are a few signs you need to watch for after you are home. Call [facility] at [phone] if you experience any of the followin. Increased severe shoulder pain. Some pain is expected especially when you exercise. 2. Increased swelling in you shoulder or arm; pain or swelling in either upper extremity. 3. Any fluid drainage from the incision. 4. Shortness of breath or chest pain. B. Please call [facility] at [phone] if you have any questions or concerns about your operation or recovery. C. Call your physician if: 1. Temperature is greater than 101 degrees (F). 2. Pain is not relieved by prescribed pain medications. 3. Increase drainage or redness from incision. 4. Unanswered questions or concerns. FOLLOW UP VISIT: Please call [facility] at [phone] to schedule a follow up appointment with Dr. Bernard or his PA in 12-14 days from your surgery date. Stand-Alone Forms: [facility], Opioid Pain Management, Smoking Cessation Medications and DC Order Prescriptions: New aspirin 81 mg Tablet,Delayed Release (Dr/Ec) 81 mg PO BID 30 Days Qty: 60 RF: 0 acetaminophen 500 mg Tablet 1,000 mg PO Q8 14 Days Qty: 84 RF: 0 oxycodone 5 mg Tablet 5 mg PO Q4H MDD 6 PRN (Reason: pain) Qty: 30 RF: 0 Continued terazosin 5 mg Capsule 5 mg PO HS RF: 0 pravastatin 40 mg Tablet 40 mg PO HS RF: 0 montelukast [Singulair] 10 mg Tablet 10 mg PO PM RF: 0 lorazepam 1 mg Tablet 1 mg PO HS RF: 0 fluticasone propionate [Flonase Allergy Relief] 50 mcg/actuation Fries,Suspension 1 spray INTRANASAL DAILY RF: 0 ramipril [Altace] 10 mg Capsule 10 mg PO BID RF: 0 metoprolol succinate 50 mg Tablet Extended Release 24 Hr 50 mg PO BID RF: 0 metoprolol succinate 25 mg Tablet Extended Release 24 Hr 25 mg PO BID RF: 0 cetirizine [Zyrtec] 10 mg Tablet 10 mg PO HS RF: 0 duloxetine 60 mg Capsule,Delayed Release(Dr/Ec) 60 mg PO QPM RF: 0 Discontinued aspirin 81 mg Tablet,Delayed Release (Dr/Ec) 81 mg PO QAM RF: 0 diclofenac sodium [Voltaren] 1 % Gel 2 g TOPICAL BID RF: 0 Discharge Orders: Discharge Order (Routine); Ordered 01/20/21 Ordered By: Aly Taylor Admission Data Admit Date/Time: 01/19/21 16:37 Attending Provider: Tank Jaime Admit Provider: Tank Jaime Primary Care Provider: Madison Knight Other Providers: Finn Fu Other Interventions: Discharge Summary Assessment (RN) Last Done: 01/20/21 13:59
== END 2021-01-20 15:43 | disposition home or self-care (01) | DRG 483 ==
LOC: ASU 11:46 → 3E 16:37